=== PATIENT | female | born 1975 | race Caucasian/White ===

== ENCOUNTER → 2023-07-01 10:46 | Outpatient (REF) | payer BC, SELFPAY | LOC: WDC 10:46 | PROVIDERS: ATTENDING PHYSICIAN Advanced Practice Midwife | DX: N64.4 Mastodynia (principal) | CPT/HCPCS: 77062; 77066 ==

== ENCOUNTER → 2024-07-28 13:53 | Outpatient (REF) | payer BC, SELFPAY | LOC: WDC 13:53 | PROVIDERS: ATTENDING PHYSICIAN Obstetrics & Gynecology | DX: Z12.31 Encounter for screening mammogram for malignant neoplasm of breast (principal) | CPT/HCPCS: 77063; 77067 ==

== ENCOUNTER → 2024-08-16 09:51 | Outpatient (REF) | payer BC, SELFPAY | LOC: WDC 09:51 | PROVIDERS: ATTENDING PHYSICIAN Obstetrics & Gynecology | DX: R92.8 Other abnormal and inconclusive findings on diagnostic imaging of breast (principal) | CPT/HCPCS: 76642 ==

== ENCOUNTER → 2024-08-23 10:43 | Outpatient (REF) | payer BC, SELFPAY ==
--- NOTE | 2024-08-23 16:11 | OID.BR.INTR ---
[facility] Breast Navigator - Initial
- -
Did not meet patient at time of biopsy. Will follow up per protocol.
== END ==
LOC: WDC 10:43
PROVIDERS: ATTENDING PHYSICIAN Obstetrics & Gynecology
DX: N63.11 Unspecified lump in the right breast, upper outer quadrant (principal)
CPT/HCPCS: 19083; 88305; 88341; 88342; 88360; A4648

== ENCOUNTER → 2024-09-07 12:36 | Outpatient (REF) | payer BC, SELFPAY | LOC: WDC 12:36 | PROVIDERS: ATTENDING PHYSICIAN Surgery | DX: R92.30 Dense breasts, unspecified (principal); Z85.3 Personal history of malignant neoplasm of breast; C50.411 Malignant neoplasm of upper-outer quadrant of right female breast | CPT/HCPCS: 76641 ==

== ENCOUNTER → 2024-09-17 08:58 | Outpatient (REF) | payer BC, SELFPAY | LOC: WDC 08:58 | PROVIDERS: ATTENDING PHYSICIAN Surgery | DX: C50.411 Malignant neoplasm of upper-outer quadrant of right female breast (principal) | CPT/HCPCS: 19285; 38792; 76942; A4648; A9541 ==

== ENCOUNTER 2024-09-18 06:22 | Day surgery (SDC) | payer BC, SELFPAY ==
[2024-09-12 08:57] LABS: Hematocrit 42.4 % (37.0-47.0); Hemoglobin 14.1 g/dL (12.0-16.0); Mean Corp Hgb Conc. 33.3 g/dL (33.0-37.0); Mean Corpuscular Volume 90.8 fL (81.0-99.0); Platelet Count 260 10^3/uL (130-400); Red Cell Dist. Width 11.9 % (11.5-14.5)
[2024-09-12 09:56] LABS: ALT (SGPT) 14 U/L (0-35); AST (SGOT) 20 U/L (14-36); Albumin 4.6 g/dl (3.5-5.0); Alkaline Phosphatase 61 U/L (38-126); Blood Urea Nitrogen 14 mg/dl (7-17); Calcium 9.6 mg/dl (8.4-10.2); Carbon Dioxide 29 mmol/L (22-30); Chloride 105 mmol/L (98-107); Glucose 99 mg/dl (70-99); Potassium 4.9 mmol/L (3.5-5.1); Sodium 140 mmol/L (135-145); Total Protein 6.8 g/dl (6.3-8.2); eGFR > 60.00
[2024-09-12 10:10] LABS: Prealbumin (Transthyretin) 26.8 mg/dl (17.6-36.0)
[2024-09-12 10:23] LABS: Vitamin D, 25-OH*** 72.3 ng/mL (30-80)
[2024-09-12 14:07] VITALS: BMI 24.1
[2024-09-18] VITALS (7 sets, daily range): BP systolic 87–120; BP diastolic 50–77; BMI 24.1
[2024-09-18] MEDS: TYLENOL 1000 MG PO (11:38)
[2024-09-18] MEDS: NORMOSOL-R/PLASMALYTE-A 1000 IV (11:51)
[2024-09-18] MEDS: VANCOCIN 200 IV (11:57)
[2024-09-18] MEDS: LOVENOX 40 MG SC (12:27)
--- NOTE | 2024-09-18 14:39 | W.IMMPOSTOP ---
Surgical Immed Post Op Note
-
Primary Surgeon: Celine
Assisting Surgeon: None
Pre-op Diagnosis: Right breast ca
Post-op Diagnosis: Same
Procedure Performed: Right localized lumpectomy and sentinel lymph node mapping and biopsy
Anesthesia Type: TIVA
Specimen / Cultures: Right localized lumpectomy, sentinel nodes, margins
Estimated Blood Loss: 10cc
Complications: None
Operative Findings: Clip and reflector in specimen
--- NOTE | 2024-09-18 14:41 | OR.RPT ---
Operative Report
Operative Report
Date of procedure: 09/18/2024
Surgeon: Celine
Preoperative diagnosis: Right breast carcinoma
Postoperative diagnosis: Right breast carcinoma
Procedure right localized lumpectomy and sentinel lymph node mapping and biopsy
The patient is a 49-year-old female who felt a change in her right breast and underwent imaging leading to a biopsy of invasive ductal carcinoma. She presents for breast conservation surgery and will undergo genetic testing at a later date. On the
day prior to the procedure the patient presented to the [facility] center where a Mayela reflector was placed at the tumor site and technetium radiotracer was injected. 5 mm from the main tumor possibly proximal with it was a potential second
lesion which should be incorporated in the resection today.
The patient presented to same-day surgical services on the day of her procedure. She verified site and procedure and was prepped. DVT and antibiotic prophylaxis were provided. She was transferred to the operating room and in the supine position
intravenous sedation was delivered. Right breast and axilla were prepped and draped in usual sterile fashion the team performed an appropriate timeout procedure.
All tissues were anesthetized with 1% lidocaine plain. Attention was first turned to the axilla where a curvilinear incision was made inferior to the hairline overlying the area of highest external gamma count. Dissection was carried through
clavipectoral fascia using the cautery and using the neoprobe 2 sentinel node packets were encountered and excised. Feeding vessels to these nodes were controlled with 3-0 silk tie. After the removal there was greater than 4 fold reduction to back
on count. Hemostasis was verified. Marcaine 0.5% plain was instilled the wound was closed using simple interrupted 3-0 plain on deep and intermediate in subcutaneous tissues. Skin was closed with a running subcuticular 4 Monocryl.
Then attention was turned to the lumpectomy where a curvilinear incision was made overlying the area of highest external Mayela signal. Skin flaps were elevated with the cautery and dissection was carried down to the mass which was widely excised
including the area where potentially the second lesion was located. Time out of body was noted the specimen was oriented for the pathologist. Specimen radiography confirmed the presence of reflector and clip within it. Additional margins were
harvested for permanent analysis from the posterior, medial, superior, lateral, inferior, and anterior dimensions. These were oriented as well. Hemostasis was verified. Hemoclips were placed in resection cavity and Marcaine was instilled into
this lesion. This incision was closed in the same manner as the axillary incision.
Surgical glue and sterile compressive dressings were applied. All sponge needle and instrument counts were correct and the patient was transferred to the recovery room in stable condition
[id number])
Mohawk Node Bx Breast Cancer
Mohawk Node Bx Breast Cancer
Operation performed with curative intent: Yes
Tracer(s) to ID [place] Nodes in Non-Neoadjuvant setting: Radioactive Tracer
Tracer(s) to ID Sentinal Nodes in the Neoadjuvant Setting: N/A
All nodes at end of dye-filled Lymphatic Channel removed: N/A
All Significantly Radioactive Nodes were removed: Yes
All Palpably Suspicious Nodes were Removed: Yes
Bx Proven Pos Nodes Marked Prior to Chemo ID'd & Removed: N/A
== END 2024-09-18 15:45 | disposition home or self-care (01) ==
LOC: SDS 06:22
PROVIDERS: ATTENDING PHYSICIAN Surgery; FAMILY PHYSICIAN Family Medicine; OTHER PHYSICIAN Obstetrics & Gynecology
DX: C50.411 Malignant neoplasm of upper-outer quadrant of right female breast (principal); C77.3 Secondary and unspecified malignant neoplasm of axilla and upper limb lymph nodes
CPT/HCPCS: 38525; 19301; 38900; 36415; 76098; 80053; 82306; 84134; 85027; 88305; 88307; 88342